=== PATIENT | female | born 1990 | race Caucasian/White ===

== ENCOUNTER 2021-02-17 12:16 | Emergency (ER) | payer SELFPAY ==
--- NOTE | 2021-02-17 12:09 | ECG_ITS ---
APPROVED REPORT Exam: Resting ECG HR:87 bpm ECG Measurements Heart Rate 87 AXES WA 146 P 51 QRSd 88 QRS 41 QT 382 T 42 QTc 459 Conclusion Normal sinus rhythm with sinus arrhythmia Normal ECG Electronically signed by : Anuj Carmen, 02/17/2021 18:09:09
[2021-02-17 12:17] VITALS: BP 121/83; PULSE 89; RESP 20; TEMP 36.4; O2SAT 100; BMI 25.7
--- NOTE | 2021-02-17 12:22 | XR_ITS ---
PROCEDURE: XR CHEST PORTABLE CLINICAL HISTORY: chest pain COMPARISON: No exams were available for comparison FINDINGS: The cardiomediastinal silhouette and pulmonary vascularity are within normal limits. The lungs are clear without infiltrates, suspicious nodules, or pleural effusions. No acute bony abnormalities. IMPRESSION: No acute findings. Dictated by: Dr. Hubert Merrill MD 02/17/2021 12:49 Dr. Hubert Merrill MD in [facility] 02/17/2021 12:49
[2021-02-17 12:35] LABS: Basophils % 0.7 % (0.1-2.0); Eosinophils # 0.4 K/mm3 (0.0-0.4); Hematocrit 36.9 % (37.0-47.0); Hemoglobin 12.3 g/dL (12.2-16.2); Lymphocytes # 1.4 K/mm3 (0.7-4.5); Lymphocytes % 27.5 % (10-50); Mean Corpuscular HGB Conc 33.2 g/dL (31.8-35.4); Mean Corpuscular Hemoglobin 28.8 pg (27.0-31.2); Mean Corpuscular Volume 86.8 fl (81-99); Mean Platelet Volume 7.8 fl (7.4-10.4); Monocytes # 0.3 K/mm3 (0.1-1.0); Monocytes % 6.4 % (1.7-9.3); Neutrophils # 2.9 K/mm3 (1.8-7.8); Neutrophils % 58.5 % (37.0-80.0); Platelet Count 231 K/mm3 (142-424); Red Blood Count 4.26 M/mm3 (4.20-5.40); Red Cell Distribution Width 13.3 % (11.5-17.5)
[2021-02-17 12:36] LABS: Chloride 106 mmol/L (98-107)
[2021-02-17 12:37] LABS: Potassium 3.6 mmoL/L (3.5-5.1); Sodium 138 mmol/L (136-145)
[2021-02-17 12:39] LABS: Alanine Aminotransferase 17 U/L (12-78); Alkaline Phosphatase 64 U/L (38-126); Anion Gap 12.6 mEq/L (5-15); Aspartate Amino Transferase 28 U/L (14-36); Bilirubin,Total 0.5 mg/dl (0.2-1.3); Blood Urea Nitrogen 14 mg/dl (7-17); Carbon Dioxide 23 mmol/L (22.0-30.0); Creatinine Clearance Estimated 144 mL/min (50-200); Estimated Glomerular Filt Rate 118 ml/min (>60); GFR (African American) 143 ML/MIN (>60)
[2021-02-17 12:40] LABS: Albumin Level 4.9 g/dl (3.5-5.0); Albumin/Globulin Ratio 1.8 (1.1-1.8); Calcium 9.6 mg/dl (8.4-10.2); Globulin 2.7 g/dL (1.3-3.2); Glucose 124 mg/dl (74-100); Lipase 93 U/L (23-300); Total Protein,Serum 7.6 g/dl (6.3-8.2)
[2021-02-17 12:45] LABS: D-Dimer 0.53 ug/mL (0.0-0.5)
--- NOTE | 2021-02-17 12:50 | CT_ITS ---
PROCEDURE: CT ANGIO CHEST CLINCIAL INDICATION: chest pain, soa, elevated d-dimer post COIVD- PE? Chest pain and shortness of air COMPARISON: CR XR CHEST PORTABLE from 02/17/2021 TECHNIQUE: IV Contrast: 70ML Isovue 370 Axial images obtained with sagittal and coronal reformats. All CT scans at the facility use one or more dose reduction, viz: automated exposure control, ma/kV adjustment per patient size (including targeted exams where dose is matched to indication, i.e. head), or iterative reconstruction technique. FINDINGS: HEART AND MEDIASTINAL STRUCTURES: No evidence of pulmonary embolus, aortic aneurysm, or aortic dissection. Dense curvilinear areas of increased density are present in the anterior mediastinum and may be related to collateral blood vessels. LUNGS AND PLEURAL SPACES: There is minimal biapical scarring. Calcified granuloma is present in the right middle lobe. BONY STRUCTURES: No acute bony abnormalities apparent. UPPER ABDOMEN: In the left upper quadrant there is a lobular area of soft tissue density measuring 6 by 4.5 cm. This may very well represent unopacified bowel. Please correlate with physical exam. ADDITIONAL FINDINGS: No other significant abnormalities. IMPRESSION: 1. No evidence of pulmonary embolus or other acute thoracic findings. 2. Asymmetric soft tissue density in the left upper quadrant possibly due to a unopacified jejunum. This could be confirmed with abdomen CT with oral contrast if clinically warranted. Dictated by: Sunil Rader MD 02/17/2021 14:35 Sunil Rader MD in [facility] 02/17/2021 14:35
[2021-02-17 12:52] LABS: Troponin I < 0.01 ng/ml (0.00-0.034)
[2021-02-17 13:30] VITALS: BP 118/71; PULSE 75; RESP 18; O2SAT 100
--- NOTE | 2021-02-17 13:31 | [facility].EDCP ---
ED Disposition Clinical Impression: Chest pain Qualifiers: Chest pain type: unspecified Qualified Code(s): R07.9 - Chest pain, unspecified Dyspnea Qualifiers: Dyspnea type: shortness of breath Qualified Code(s): R06.02 - Shortness of breath Disposition: Home, Self-Care Condition on Discharge: Good Instructions: DI for Atypical Chest Pain Prescriptions: Albuterol Sulfate [Albuterol Sulfate Hfa] 2 puff IH Q4H PRN #1 [email or web address] PRN Reason: Shortness Of Breath Prescription Printed Referrals: Eyad Gilbert MD [Primary Care Provider] - 3 days - Critical Care Critical Care Time: No Attestation: On 02/17/21, the high probability of a clinically significant, sudden or life threatening deterioration of the following system(s) required my full and direct attention, intervention and personal management. The time I documented below is in addition to time spent performing reported procedures but includes the following listed in this critical care notation. Medical Decision Making - Medical Records Medical records reviewed: Yes: I reviewed the patient's medical records. - [place] Inquiry Pt receiving controlled substance: No Vital Signs: 02/17/21 12:17 02/17/21 13:30 02/17/21 14:01 Temperature 97.5 F L Temperature Source Oral Pulse Rate 75 67 Pulse Rate [Left Radial] 89 Respiratory Rate 20 18 18 Blood Pressure 118/71 110/75 Blood Pressure [Right Arm] 121/83 Blood Pressure Mean 80 Blood Pressure Mean [Right Arm] 95 Blood Pressure Source [Right Arm] Automatic Cuff Blood Pressure Position [Right Arm] Sitting 02 Sat by Pulse Oximetry 100 100 100 Oxygen Delivery Method Room Air - Lab Data Lab results reviewed: Yes: I reviewed the patient's lab results. Lab Results 02/17/21 12:17: WBC 5.0, RBC 4.26, Hgb 12.3, Hct 36.9 L, MCV 86.8, MCH 28.8, MCHC 33.2, RDW 13.3, Plt Count 231, MPV 7.8, Neut % (Auto) 58.5, Lymph % (Auto) 27.5, Guthrie % (Auto) 6.4, Eos % (Auto) 7.0, Baso % (Auto) 0.7, Neut # (Auto) 2.9, Lymph # (Auto) 1.4, Guthrie # (Auto) 0.3, Eos # (Auto) 0.4, Baso # (Auto) 0.0 02/17/21 12:17: D-Dimer 0.53 H 02/17/21 12:17: Sodium 138, Potassium 3.6, Chloride 106, Carbon Dioxide 23, Anion Gap 12.6, BUN 14, Creatinine 0.60, Estimated Creat Clear 144, Estimated GFR 118, Est GFR ( Amer) 143, Glucose 124 H, Calcium 9.6, Total Bilirubin 0.5, AST 28, ALT 17, Alkaline Phosphatase 64, Troponin I < 0.01, Total Protein 7.6, Albumin 4.9, Globulin 2.7, Albumin/Globulin Ratio 1.8, Lipase 93 02/17/21 12:17: Serum HCG, Qual Negative Result diagrams: 02/17/21 12:17 02/17/21 12:17 Orders (Tests/Meds): ED MEDICATIONS Discontinued Medications Generic Name Dose Route Start Last Admin Trade Name Freq PRN Reason Stop Dose Admin Iopamidol 70 ml 02/17/21 13:54 02/17/21 13:55 Iopamidol-370 (76%);100ml Bottle IV 02/17/21 13:55 70 ml ONCE ONE Administration Sodium Chloride 50 ml 02/17/21 13:54 02/17/21 13:55 0.9 % Sodium Chloride 50 Ml Vial IV 02/17/21 13:55 50 ml ONCE ONE Administration Sodium Chloride 10 ml 02/17/21 13:54 02/17/21 13:55 Sodium Chloride 0.9% 10ml Syr (Rad Only) IV 02/17/21 13:55 10 ml ONCE ONE Administration ORDERS Category Date Time Status Troponin I Q3H Lab 02/17/21 15:30 Ordered Troponin I Q3H Lab 02/17/21 18:30 Ordered - CT Data CT Scan: Head Time Received: 15:[address] Reviewed: Yes: I have reviewed the patient's CT results Findings Narrative: No PE - ECG Data Tracing #1 EKG shows a sinus rhythm with some arrhythmia with a rate of 87. No acute ST segment elevation or depression. No hyperacute T waves. Normal intervals. EKG interpreted by me. Medical Decision Narrative: Patient with reassuring EKG with no signs of pericarditis. She is afebrile with no significant leukocytosis, unlikely myocarditis. Troponin negative and symptoms have been ongoing all week, no need for repeat at this time. D-dimer slightly eleva
[2021-02-17 13:37] LABS: HCG Qualitative, Serum Negative (Negative)
[2021-02-17 14:01] VITALS: BP 110/75; PULSE 67; RESP 18; O2SAT 100
[2021-02-17 15:39] VITALS: BP 112/74; PULSE 87; RESP 16; TEMP 36.6; O2SAT 98
== END 2021-02-17 15:41 | disposition home or self-care (01) ==
PROVIDERS: Emergency Provider Emergency Medicine; PCP Family Medicine
DX: R07.9 Chest pain, unspecified (principal); M25.512 Pain in left shoulder; Z86.16 Personal history of COVID-19
CPT/HCPCS: 71045; 71275; 80053; 83690; 84484; 84703; 85025; 85378; 93005; 99282; Q9967